=== PATIENT | male | born 1985 ===

== ENCOUNTER 2021-09-19 08:48 | Emergency (ER) | payer BC ==
[2021-09-19] MEDS ORDERED: Lorazepam 1 MG TAB ONE (09:32)
[2021-09-19] MEDS ORDERED: Metoprolol Tartrate 50 MG TAB ONE (09:32)
[2021-09-19] MEDS ORDERED: Amlodipine 5 MG TAB ONE (09:32)
== END 2021-09-19 10:16 | disposition home or self-care (01) ==
LOC: EEVIPCON 08:48 → MADERS 08:48
DX: F43.0 Acute stress reaction (principal); I10 Essential (primary) hypertension; F17.210 Nicotine dependence, cigarettes, uncomplicated; E78.5 Hyperlipidemia, unspecified; Z79.899 Other long term (current) drug therapy
CPT/HCPCS: 93005